=== PATIENT | male | born 1965 | race African-American/Black ===

== ENCOUNTER 2020-03-22 15:24 | Inpatient (IN) ==
[2020-03-22] MEDS ORDERED: ALUM/MAG/SIMETH/LIDO VISC 1:1 30 ML BOTTLE PO STA (15:53)
[2020-03-22 16:11] LABS: Basophils % 0.2 % (0.0-0.8); Eosinophils # 0.2 10*3/uL (0.0-0.87); Eosinophils % 1.1 % (0.00-10.9); Hematocrit 25.6 VOL% (42.0-52.0); Hemoglobin 8.3 GM/DL (14.0-18.0); Immature Granulocytes % 0.6 %; Immature Granulocytes Absolute 0.09 #; Lymphocytes # 0.8 10*3/uL (1.4-4.0); Lymphocytes % 5.2 % (21.2-54.2); Mean Corpuscular HGB Conc 32.4 GM/DL (32-36); Mean Corpuscular Volume 94.1 FL (87-102); Mean Platelet Volume 10.5 FL (9.6-12.0); Monocytes % 8.3 % (1.7-12.7); NRBC # 0.03 10*3/uL; Neutrophils % 84.6 % (38.7-73.9); Platelet Count 359 T/CUMM (130-400); Red Blood Count 2.72 MC/CUMM (3.8-5.5); White Blood Count 16.1 T/CUMM (4-12)
[2020-03-22 16:31] LABS: Albumin 3.2 G/DL (3.4-5.0); Bilirubin,Total 0.6 MG/DL (0.2-1.0); Osmolality,Calculated 310.4 MOS/KG (273-304); Total Protein 6.6 G/DL (6.4-8.3)
[2020-03-22] MEDS ORDERED: cefTRIAXone 1,000 MG in SODIUM CHLORIDE 0.9% 100 ML IV STA (17:18)
[2020-03-22] MEDS ORDERED: DEXTROSE 50% 25 GM/50 ML VIAL IV PRN (18:36)
[2020-03-22] MEDS ORDERED: ONDANSETRON 4 MG/2 ML VIAL IV PRN (18:36)
[2020-03-22] MEDS ORDERED: DOCUSATE SODIUM 100 MG CAPSULE PO PRN (18:36)
[2020-03-22] MEDS ORDERED: GLUCAGON 1 MG VIAL IM PRN (18:36)
[2020-03-22 18:48] LABS: Apearance,Urine CLEAR (Clear); Bilirubin,Urine Negative (Negative); Blood, Urine Negative (Negative); Glucose,Urine (UA) Negative (Negative); Ketones,Urine Negative (Negative); Mucus,Urine Occasional /LPF (Occasional); Nitrite,Urine Negative (Negative); Protein,Urine Negative; RBC,Urine 2 /HPF (0-4); Squamous Epithelial Cell,Urine Occasional /HPF (0-10); Urine Color Yellow (Yellow); Urine Specific Gravity 1.013 (1.001-1.035); WBC,Urine 12 /HPF (0-6)
[2020-03-22] MEDS: HEPARIN 5,000 UNIT/1 ML VIAL SUBCUT SCH (22:36)
[2020-03-22] MEDS: PIPERACILLIN/TAZOBACTAM 3,375 MG in SODIUM CHLORIDE 0.9% 100 ML IV SCH (22:51)
[2020-03-22] MEDS: SODIUM BICARB INJ 100 MEQ in STERILE WATER INJ 1,000 ML IV SCH (22:51)
[2020-03-22] MEDS: INSULIN REGULAR 100 UNIT/ML SUBCUT SCH (22:52)
[2020-03-22] MEDS: INSULIN NPH/REGULAR 70/30 100 UNIT/ML SUBCUT SCH (22:52)
[2020-03-23] MEDS: CLINDAMYCIN INJ 600 MG in PREMIX 1 EACH IV SCH ×3 (03:16→15:08)
[2020-03-23 03:40] LABS: ABG Base Excess -0.8 MMOL/L (-2.5-2.5); ABG HCO3 23.9 MMOL/L (20-26); ABG Oxygen Saturation 94.1 % (95-100); ABG PCO2 40.1 MM HG (35-48); ABG PH 7.394 (7.35-7.45); ABG PO2 75.2 MM HG (80-95); ABG TCO2 25.2 MMOL/L (23-27); Allen Test Positive; Pt O2 Delivery Device Room Air
[2020-03-23 05:18] LABS: Basophils % 0.2 % (0.0-0.8); Eosinophils # 0.1 10*3/uL (0.0-0.87); Eosinophils % 0.4 % (0.00-10.9); Hematocrit 25.4 VOL% (42.0-52.0); Immature Granulocytes % 0.9 %; Immature Granulocytes Absolute 0.19 #; Lymphocytes # 1.5 10*3/uL (1.4-4.0); Lymphocytes % 7.2 % (21.2-54.2); Mean Corpuscular HGB Conc 31.5 GM/DL (32-36); Mean Platelet Volume 10.6 FL (9.6-12.0); Monocytes % 10.1 % (1.7-12.7); Neutrophils % 81.2 % (38.7-73.9); Platelet Count 336 T/CUMM (130-400); Red Blood Count 2.73 MC/CUMM (3.8-5.5); Red Cell Distribution Width 13.1 % (9.3-17.3); White Blood Count 20.4 T/CUMM (4-12)
[2020-03-23 05:30] LABS: Osmolality,Calculated 309.4 MOS/KG (273-304)
[2020-03-23 05:33] LABS: % Iron Saturation 6.6 % (18-50)
[2020-03-23] MEDS: HEPARIN 5,000 UNIT/1 ML VIAL SUBCUT SCH ×3 (05:33→21:06)
[2020-03-23 05:40] LABS: Hypochromasia 2+; Microcytosis 1+; Platelet Estimate Adequate
[2020-03-23 06:01] LABS: Folate 11.9 NG/ML (5.4-24.0); Parathyroid Hormone Intact 153.1 PG/ML (18.4-80.1); Vitamin B12 1455 PG/ML (211-911)
[2020-03-23 08:28] LABS: Sedimentation Rate-Westergren 130 MM/HR (0-20)
[2020-03-23] MEDS: PIPERACILLIN/TAZOBACTAM 3,375 MG in SODIUM CHLORIDE 0.9% 100 ML IV SCH ×2 (08:31→21:06)
[2020-03-23] MEDS: INSULIN REGULAR 100 UNIT/ML SUBCUT SCH ×4 (08:38→21:17)
[2020-03-23] MEDS: INSULIN NPH/REGULAR 70/30 100 UNIT/ML SUBCUT SCH ×2 (08:38→21:17)
[2020-03-23 10:28] LABS: Hemoglobin A1 (Alkaline) 96.5 % (96.5-98.5); Hemoglobin A2 (Alkaline) 3.5 % (1.5-3.5)
[2020-03-23] MEDS: ACETAMINOPHEN 325 MG TABLET PO PRN (21:05)
[2020-03-23] MEDS: SODIUM BICARB INJ 100 MEQ in STERILE WATER INJ 1,000 ML IV SCH (21:06)
[2020-03-24] MEDS: CLINDAMYCIN INJ 600 MG in PREMIX 1 EACH IV SCH ×3 (01:27→15:15)
[2020-03-24] MEDS: SODIUM BICARB INJ 100 MEQ in STERILE WATER INJ 1,000 ML IV SCH ×2 (02:56→20:45)
[2020-03-24] MEDS: HEPARIN 5,000 UNIT/1 ML VIAL SUBCUT SCH ×3 (05:05→21:28)
[2020-03-24 06:02] LABS: Basophils # 0.1 10*3/uL (0.0-0.2); Basophils % 0.3 % (0.0-0.8); Eosinophils % 0.1 % (0.00-10.9); Hematocrit 24.8 VOL% (42.0-52.0); Immature Granulocytes % 1.2 %; Immature Granulocytes Absolute 0.25 #; Lymphocytes # 1.2 10*3/uL (1.4-4.0); Lymphocytes % 5.6 % (21.2-54.2); Mean Corpuscular HGB Conc 32.3 GM/DL (32-36); Mean Corpuscular Volume 92.9 FL (87-102); Mean Platelet Volume 11.1 FL (9.6-12.0); Monocytes % 7.6 % (1.7-12.7); Neutrophils % 85.2 % (38.7-73.9); Platelet Count 321 T/CUMM (130-400); Red Blood Count 2.67 MC/CUMM (3.8-5.5); Red Cell Distribution Width 12.8 % (9.3-17.3); White Blood Count 21.7 T/CUMM (4-12)
[2020-03-24 06:22] LABS: Calcium 9.6 MG/DL (8.5-10.1); Osmolality,Calculated 303.4 MOS/KG (273-304)
[2020-03-24 06:25] LABS: Band Neutrophils 1 % (0-10); Hypochromasia 2+; Lymphocytes 5 % (20-55); Microcytosis 1+; Ovalocytes Slight; Platelet Estimate Adequate; Segmented Neutrophils 89 % (50-85); Total Cells Counted 100
[2020-03-24] MEDS ORDERED: ERGOCALCIFEROL 50,000 UNIT CAPSULE PO SCH (07:00)
[2020-03-24] MEDS: PIPERACILLIN/TAZOBACTAM 3,375 MG in SODIUM CHLORIDE 0.9% 100 ML IV SCH ×2 (08:15→21:28)
[2020-03-24] MEDS: INSULIN REGULAR 100 UNIT/ML SUBCUT SCH ×4 (08:29→21:50)
[2020-03-24] MEDS: cloNIDine 0.1 MG TABLET PO SCH ×2 (08:30→21:27)
[2020-03-24] MEDS: INSULIN NPH/REGULAR 70/30 100 UNIT/ML SUBCUT SCH ×2 (08:30→21:27)
[2020-03-24] MEDS: hydroCHLOROthiazide 25 MG TABLET PO SCH (08:31)
[2020-03-24] MEDS: GABAPENTIN 400 MG CAPSULE PO SCH ×3 (08:31→21:27)
[2020-03-24] MEDS: POLYETHYLENE GLYCOL POWDER 17 GM PACK PO SCH (10:37)
[2020-03-24] MEDS: IRON SUCROSE 200 MG in SODIUM CHLORIDE 0.9% 100 ML IV SCH (12:26)
[2020-03-24] MEDS: SIMVASTATIN 20 MG TABLET PO SCH (16:29)
[2020-03-24] MEDS: INSULIN GLARGINE 100 UNIT/ML SUBCUT SCH (21:50)
[2020-03-25] MEDS: CLINDAMYCIN INJ 600 MG in PREMIX 1 EACH IV SCH ×3 (00:06→15:22)
[2020-03-25] MEDS: ACETAMINOPHEN 325 MG TABLET PO PRN ×2 (03:56→08:54)
[2020-03-25] MEDS: HEPARIN 5,000 UNIT/1 ML VIAL SUBCUT SCH ×3 (03:56→21:08)
[2020-03-25 05:29] LABS: Basophils # 0.1 10*3/uL (0.0-0.2); Basophils % 0.3 % (0.0-0.8); Eosinophils # 0.2 10*3/uL (0.0-0.87); Eosinophils % 0.8 % (0.00-10.9); Hematocrit 22.4 VOL% (42.0-52.0); Hemoglobin 7.2 GM/DL (14.0-18.0); Lymphocytes # 1.6 10*3/uL (1.4-4.0); Lymphocytes % 8.1 % (21.2-54.2); Mean Corpuscular HGB Conc 32.1 GM/DL (32-36); Mean Corpuscular Volume 93.7 FL (87-102); Mean Platelet Volume 10.6 FL (9.6-12.0); Neutrophils % 81.8 % (38.7-73.9); Platelet Count 343 T/CUMM (130-400); Red Blood Count 2.39 MC/CUMM (3.8-5.5); Red Cell Distribution Width 12.9 % (9.3-17.3); White Blood Count 19.7 T/CUMM (4-12)
[2020-03-25 05:49] LABS: Calcium 9.1 MG/DL (8.5-10.1); Osmolality,Calculated 302.4 MOS/KG (273-304)
[2020-03-25 06:42] LABS: HIV Antigen/Antibody Result Nonreactive (Nonreactive)
[2020-03-25] MEDS: INSULIN REGULAR 100 UNIT/ML SUBCUT SCH ×4 (08:47→21:07)
[2020-03-25] MEDS: cloNIDine 0.1 MG TABLET PO SCH ×2 (08:49→21:08)
[2020-03-25] MEDS: INSULIN NPH/REGULAR 70/30 100 UNIT/ML SUBCUT SCH ×2 (08:49→21:24)
[2020-03-25] MEDS: hydroCHLOROthiazide 25 MG TABLET PO SCH (08:49)
[2020-03-25] MEDS: GABAPENTIN 400 MG CAPSULE PO SCH ×3 (08:49→21:06)
[2020-03-25] MEDS: POLYETHYLENE GLYCOL POWDER 17 GM PACK PO SCH (08:49)
[2020-03-25] MEDS: IRON SUCROSE 200 MG in SODIUM CHLORIDE 0.9% 100 ML IV SCH (09:20)
[2020-03-25] MEDS: PIPERACILLIN/TAZOBACTAM 3,375 MG in SODIUM CHLORIDE 0.9% 100 ML IV SCH ×2 (09:58→21:04)
[2020-03-25] MEDS: SODIUM BICARB INJ 100 MEQ in STERILE WATER INJ 1,000 ML IV SCH ×2 (14:31→23:22)
[2020-03-25] MEDS: SIMVASTATIN 20 MG TABLET PO SCH (16:34)
[2020-03-25] MEDS: INSULIN GLARGINE 100 UNIT/ML SUBCUT SCH (21:07)
[2020-03-26] MEDS: CLINDAMYCIN INJ 600 MG in PREMIX 1 EACH IV SCH ×3 (01:05→21:20)
[2020-03-26] MEDS: HEPARIN 5,000 UNIT/1 ML VIAL SUBCUT SCH ×3 (04:50→21:21)
[2020-03-26 06:00] LABS: Basophils # 0.1 10*3/uL (0.0-0.2); Basophils % 0.3 % (0.0-0.8); Eosinophils # 0.4 10*3/uL (0.0-0.87); Eosinophils % 2.1 % (0.00-10.9); Hematocrit 22.1 VOL% (42.0-52.0); Immature Granulocytes % 2.9 %; Lymphocytes # 1.6 10*3/uL (1.4-4.0); Lymphocytes % 9.2 % (21.2-54.2); Mean Corpuscular HGB Conc 31.7 GM/DL (32-36); Mean Corpuscular Volume 92.9 FL (87-102); Mean Platelet Volume 10.3 FL (9.6-12.0); Monocytes % 8.4 % (1.7-12.7); NRBC # 0.02 10*3/uL; Neutrophils % 77.1 % (38.7-73.9); Platelet Count 354 T/CUMM (130-400); Red Blood Count 2.38 MC/CUMM (3.8-5.5)
[2020-03-26 06:31] LABS: Osmolality,Calculated 298.5 MOS/KG (273-304)
[2020-03-26] MEDS: INSULIN NPH/REGULAR 70/30 100 UNIT/ML SUBCUT SCH ×2 (09:08→21:22)
[2020-03-26] MEDS: INSULIN REGULAR 100 UNIT/ML SUBCUT SCH ×4 (09:08→21:21)
[2020-03-26] MEDS: hydroCHLOROthiazide 25 MG TABLET PO SCH (09:09)
[2020-03-26] MEDS: cloNIDine 0.1 MG TABLET PO SCH ×2 (09:09→21:20)
[2020-03-26] MEDS: GABAPENTIN 400 MG CAPSULE PO SCH ×3 (09:09→21:20)
[2020-03-26] MEDS: POLYETHYLENE GLYCOL POWDER 17 GM PACK PO SCH (09:10)
[2020-03-26 10:58] LABS: Procalcitonin, S 4.9 ng/mL (<=0.15)
[2020-03-26] MEDS: IRON SUCROSE 200 MG in SODIUM CHLORIDE 0.9% 100 ML IV SCH (13:53)
[2020-03-26] MEDS: PIPERACILLIN/TAZOBACTAM 3,375 MG in SODIUM CHLORIDE 0.9% 100 ML IV SCH (15:01)
[2020-03-26] MEDS: SODIUM BICARB INJ 100 MEQ in STERILE WATER INJ 1,000 ML IV SCH ×2 (15:01→21:20)
[2020-03-26] MEDS: SIMVASTATIN 20 MG TABLET PO SCH (17:30)
[2020-03-26] MEDS: INSULIN GLARGINE 100 UNIT/ML SUBCUT SCH (21:23)
[2020-03-27] MEDS: HEPARIN 5,000 UNIT/1 ML VIAL SUBCUT SCH ×3 (03:46→21:23)
[2020-03-27] MEDS: PIPERACILLIN/TAZOBACTAM 3,375 MG in SODIUM CHLORIDE 0.9% 100 ML IV SCH ×2 (03:46→17:43)
[2020-03-27] MEDS: CLINDAMYCIN INJ 600 MG in PREMIX 1 EACH IV SCH ×3 (05:43→23:46)
[2020-03-27 06:45] LABS: Basophils # 0.1 10*3/uL (0.0-0.2); Basophils % 0.3 % (0.0-0.8); Eosinophils # 0.3 10*3/uL (0.0-0.87); Eosinophils % 1.3 % (0.00-10.9); Hematocrit 20.7 VOL% (42.0-52.0); Hemoglobin 6.5 GM/DL (14.0-18.0); Immature Granulocytes % 4.6 %; Immature Granulocytes Absolute 0.86 #; Lymphocytes # 2.2 10*3/uL (1.4-4.0); Lymphocytes % 11.5 % (21.2-54.2); Mean Corpuscular HGB Conc 31.4 GM/DL (32-36); Mean Corpuscular Volume 95.4 FL (87-102); Mean Platelet Volume 10.4 FL (9.6-12.0); Monocytes % 8.8 % (1.7-12.7); NRBC # 0.04 10*3/uL; Neutrophils % 73.5 % (38.7-73.9); Platelet Count 377 T/CUMM (130-400); Red Blood Count 2.17 MC/CUMM (3.8-5.5); Red Cell Distribution Width 12.9 % (9.3-17.3); White Blood Count 18.6 T/CUMM (4-12)
[2020-03-27] MEDS: INSULIN REGULAR 100 UNIT/ML SUBCUT SCH ×4 (07:42→21:22)
[2020-03-27 07:44] LABS: Eosinophils 1 % (0-10); Hypochromasia 2+; Lymphocytes 10 % (20-55); Metamyelocytes 1 %; Myelocytes 2 %; Segmented Neutrophils 78 % (50-85); Total Cells Counted 100
[2020-03-27 07:45] LABS: Platelet Estimate Normal; Polychromasia Slight
[2020-03-27] MEDS ORDERED: SODIUM CHLORIDE 0.9% 1,000 ML IV PRN (07:45)
[2020-03-27] MEDS: INSULIN NPH/REGULAR 70/30 100 UNIT/ML SUBCUT SCH ×2 (08:06→21:31)
[2020-03-27] MEDS: GABAPENTIN 400 MG CAPSULE PO SCH ×3 (08:06→21:31)
[2020-03-27] MEDS: cloNIDine 0.1 MG TABLET PO SCH ×2 (08:06→21:23)
[2020-03-27] MEDS: hydroCHLOROthiazide 25 MG TABLET PO SCH (08:06)
[2020-03-27] MEDS: POLYETHYLENE GLYCOL POWDER 17 GM PACK PO SCH (08:07)
[2020-03-27] MEDS: SODIUM BICARB INJ 100 MEQ in STERILE WATER INJ 1,000 ML IV SCH (08:31)
[2020-03-27 08:38] LABS: Calcium 8.8 MG/DL (8.5-10.1); Osmolality,Calculated 298.8 MOS/KG (273-304)
[2020-03-27] MEDS ORDERED: predniSONE 20 MG TABLET PO ONE (14:07)
[2020-03-27] MEDS: IRON SUCROSE 200 MG in SODIUM CHLORIDE 0.9% 100 ML IV SCH (14:27)
[2020-03-27 15:51] LABS: Hematocrit 25.4 VOL% (42.0-52.0); Hemoglobin 8.3 GM/DL (14.0-18.0)
[2020-03-27] MEDS: SIMVASTATIN 20 MG TABLET PO SCH (17:42)
[2020-03-27] MEDS: INSULIN GLARGINE 100 UNIT/ML SUBCUT SCH (21:14)
[2020-03-28] MEDS: PIPERACILLIN/TAZOBACTAM 3,375 MG in SODIUM CHLORIDE 0.9% 100 ML IV SCH ×2 (05:34→17:07)
[2020-03-28] MEDS: HEPARIN 5,000 UNIT/1 ML VIAL SUBCUT SCH ×3 (05:34→20:45)
[2020-03-28] MEDS: SODIUM BICARB INJ 100 MEQ in STERILE WATER INJ 1,000 ML IV SCH ×5 (05:36→23:58)
[2020-03-28 06:23] LABS: Basophils # 0.1 10*3/uL (0.0-0.2); Basophils % 0.3 % (0.0-0.8); Eosinophils % 0.1 % (0.00-10.9); Hemoglobin 8.2 GM/DL (14.0-18.0); Immature Granulocytes % 3.8 %; Immature Granulocytes Absolute 0.85 #; Lymphocytes # 1.4 10*3/uL (1.4-4.0); Lymphocytes % 6.2 % (21.2-54.2); Mean Corpuscular HGB Conc 32.8 GM/DL (32-36); Mean Corpuscular Volume 93.6 FL (87-102); Mean Platelet Volume 9.9 FL (9.6-12.0); Monocytes % 6.2 % (1.7-12.7); Neutrophils % 83.4 % (38.7-73.9); Platelet Count 356 T/CUMM (130-400); Red Blood Count 2.67 MC/CUMM (3.8-5.5); Red Cell Distribution Width 12.9 % (9.3-17.3); White Blood Count 22.3 T/CUMM (4-12)
[2020-03-28 06:44] LABS: Calcium 9.2 MG/DL (8.5-10.1)
[2020-03-28] MEDS: IRON SUCROSE 200 MG in SODIUM CHLORIDE 0.9% 100 ML IV SCH (08:36)
[2020-03-28 08:37] LABS: Anisocytosis 1+; Band Neutrophils 2 % (0-10); Lymphocytes 8 % (20-55); Metamyelocytes 1 %; Myelocytes 2 %; Platelet Estimate Normal; Segmented Neutrophils 82 % (50-85); Total Cells Counted 100
[2020-03-28] MEDS: CLINDAMYCIN INJ 600 MG in PREMIX 1 EACH IV SCH ×2 (08:37→16:24)
[2020-03-28 08:38] LABS: Macrocytosis Slight
[2020-03-28] MEDS: hydroCHLOROthiazide 25 MG TABLET PO SCH (08:38)
[2020-03-28] MEDS: GABAPENTIN 400 MG CAPSULE PO SCH ×3 (08:39→20:44)
[2020-03-28] MEDS: INSULIN REGULAR 100 UNIT/ML SUBCUT SCH ×4 (08:40→20:47)
[2020-03-28] MEDS: INSULIN NPH/REGULAR 70/30 100 UNIT/ML SUBCUT SCH ×2 (08:40→20:46)
[2020-03-28] MEDS: POLYETHYLENE GLYCOL POWDER 17 GM PACK PO SCH (08:41)
[2020-03-28] MEDS: cloNIDine 0.1 MG TABLET PO SCH ×2 (08:43→20:44)
[2020-03-28] MEDS: predniSONE 20 MG TABLET PO SCH ×2 (08:51→20:44)
[2020-03-28] MEDS: SIMVASTATIN 20 MG TABLET PO SCH (16:26)
[2020-03-28] MEDS: INSULIN GLARGINE 100 UNIT/ML SUBCUT SCH (20:47)
[2020-03-29] MEDS: CLINDAMYCIN INJ 600 MG in PREMIX 1 EACH IV SCH ×3 (00:09→16:13)
[2020-03-29] MEDS: HEPARIN 5,000 UNIT/1 ML VIAL SUBCUT SCH ×3 (04:28→21:56)
[2020-03-29] MEDS: PIPERACILLIN/TAZOBACTAM 3,375 MG in SODIUM CHLORIDE 0.9% 100 ML IV SCH ×2 (05:15→17:23)
[2020-03-29 05:38] LABS: Basophils # 0.1 10*3/uL (0.0-0.2); Basophils % 0.2 % (0.0-0.8); Hematocrit 24.2 VOL% (42.0-52.0); Hemoglobin 7.9 GM/DL (14.0-18.0); Immature Granulocytes % 2.9 %; Immature Granulocytes Absolute 0.82 #; Lymphocytes % 3.6 % (21.2-54.2); Mean Corpuscular HGB Conc 32.6 GM/DL (32-36); Mean Corpuscular Volume 92.7 FL (87-102); Mean Platelet Volume 10.9 FL (9.6-12.0); Neutrophils % 89.3 % (38.7-73.9); Platelet Count 377 T/CUMM (130-400); Red Blood Count 2.61 MC/CUMM (3.8-5.5); White Blood Count 28.5 T/CUMM (4-12)
[2020-03-29 05:51] LABS: Calcium 8.4 MG/DL (8.5-10.1); Osmolality,Calculated 303.1 MOS/KG (273-304)
[2020-03-29 06:54] LABS: Band Neutrophils 1 % (0-10); Lymphocytes 2 % (20-55); Segmented Neutrophils 96 % (50-85)
[2020-03-29 06:55] LABS: Platelet Estimate Normal; Total Cells Counted 100
[2020-03-29] MEDS: INSULIN REGULAR 100 UNIT/ML SUBCUT SCH ×4 (08:17→22:02)
[2020-03-29] MEDS: GABAPENTIN 400 MG CAPSULE PO SCH ×3 (08:18→21:55)
[2020-03-29] MEDS: INSULIN NPH/REGULAR 70/30 100 UNIT/ML SUBCUT SCH ×2 (08:18→21:56)
[2020-03-29] MEDS: cloNIDine 0.1 MG TABLET PO SCH ×2 (08:18→21:55)
[2020-03-29] MEDS: hydroCHLOROthiazide 25 MG TABLET PO SCH (08:19)
[2020-03-29] MEDS: POLYETHYLENE GLYCOL POWDER 17 GM PACK PO SCH (08:19)
[2020-03-29] MEDS: predniSONE 20 MG TABLET PO SCH (08:19)
[2020-03-29] MEDS: SODIUM BICARB INJ 100 MEQ in STERILE WATER INJ 1,000 ML IV SCH ×2 (08:29→14:02)
[2020-03-29] MEDS ORDERED: INSULIN GLARGINE 100 UNIT/ML SUBCUT SCH (09:04)
[2020-03-29] MEDS: IRON SUCROSE 200 MG in SODIUM CHLORIDE 0.9% 100 ML IV SCH (09:06)
[2020-03-29] MEDS: SIMVASTATIN 20 MG TABLET PO SCH (16:12)
[2020-03-29] MEDS: COLCHICINE 0.6 MG CAPSULE PO SCH (18:00)
[2020-03-29] MEDS ORDERED: ERGOCALCIFEROL 50,000 UNIT CAPSULE PO SCH (20:00)
[2020-03-29] MEDS ORDERED: allopurinoL 100 MG TABLET PO SCH (21:00)
[2020-03-30] MEDS: CLINDAMYCIN INJ 600 MG in PREMIX 1 EACH IV SCH ×2 (01:10→09:20)
[2020-03-30 04:26] LABS: Basophils # 0.1 10*3/uL (0.0-0.2); Basophils % 0.2 % (0.0-0.8); Eosinophils # 0.1 10*3/uL (0.0-0.87); Eosinophils % 0.3 % (0.00-10.9); Hematocrit 25.2 VOL% (42.0-52.0); Hemoglobin 8.1 GM/DL (14.0-18.0); Immature Granulocytes % 1.9 %; Immature Granulocytes Absolute 0.43 #; Lymphocytes # 2.1 10*3/uL (1.4-4.0); Lymphocytes % 9.1 % (21.2-54.2); Mean Corpuscular HGB Conc 32.1 GM/DL (32-36); Mean Platelet Volume 10.1 FL (9.6-12.0); Monocytes % 5.4 % (1.7-12.7); Neutrophils % 83.1 % (38.7-73.9); Platelet Count 446 T/CUMM (130-400); Red Blood Count 2.68 MC/CUMM (3.8-5.5); Red Cell Distribution Width 12.8 % (9.3-17.3); White Blood Count 22.7 T/CUMM (4-12)
[2020-03-30 04:46] LABS: Hypochromasia 1+; Lymphocytes 5 % (20-55); Microcytosis Slight; Ovalocytes Slight; Platelet Estimate Adequate; Segmented Neutrophils 90 % (50-85); Total Cells Counted 100
[2020-03-30 04:52] LABS: Osmolality,Calculated 303.8 MOS/KG (273-304)
[2020-03-30] MEDS: HEPARIN 5,000 UNIT/1 ML VIAL SUBCUT SCH (05:28)
[2020-03-30] MEDS: PIPERACILLIN/TAZOBACTAM 3,375 MG in SODIUM CHLORIDE 0.9% 100 ML IV SCH (05:29)
[2020-03-30] MEDS: SODIUM BICARB INJ 100 MEQ in STERILE WATER INJ 1,000 ML IV SCH (05:31)
[2020-03-30] MEDS: INSULIN REGULAR 100 UNIT/ML SUBCUT SCH (08:36)
[2020-03-30] MEDS: INSULIN NPH/REGULAR 70/30 100 UNIT/ML SUBCUT SCH (08:38)
[2020-03-30] MEDS: cloNIDine 0.1 MG TABLET PO SCH (08:41)
[2020-03-30] MEDS: COLCHICINE 0.6 MG CAPSULE PO SCH (08:42)
[2020-03-30] MEDS: GABAPENTIN 400 MG CAPSULE PO SCH (08:42)
[2020-03-30] MEDS: POLYETHYLENE GLYCOL POWDER 17 GM PACK PO SCH (08:46)
[2020-03-30] MEDS ORDERED: predniSONE 20 MG TABLET PO SCH (09:00)
[2020-03-30] MEDS ORDERED: ASPIRIN EC 81 MG TABLET PO SCH (10:30)
[2020-03-30] MEDS ORDERED: amLODIPine 5 MG TABLET PO SCH (10:30)
[2020-03-30 11:15] VITALS: BP 144/77
[2020-03-30] MEDS: IRON SUCROSE 200 MG in SODIUM CHLORIDE 0.9% 100 ML IV SCH (11:15)
== END 2020-03-30 11:40 | disposition home or self-care (01) | DRG 469 ==
LOC: N.ED 15:24 → N.EDINP 17:23 → SUATTDRO 17:23 → N.TELEN 19:36 → N.4E 03-25 18:16
PROVIDERS: ADMIT Family Medicine; ATTEND Hospitalist

== ENCOUNTER 2020-05-24 02:20 | Inpatient (IN) ==
[2020-05-24] MEDS ORDERED: methylPREDNISolone SOD SUC 125 MG/2 ML VIAL IV STA (02:38)
[2020-05-24] MEDS ORDERED: ALBUTEROL/IPRATROPIUM 3 ML NEB RESP TX STA (02:38)
[2020-05-24] MEDS ORDERED: FUROSEMIDE 40 MG/4 ML VIAL IV STA (02:39)
[2020-05-24] MEDS ORDERED: NITROGLYCERIN 2% OINT 1 INCH/GM PACK TOP STA (02:39)
[2020-05-24 02:56] LABS: Basophils % 0.2 % (0.0-0.8); Eosinophils # 0.2 10*3/uL (0.0-0.87); Eosinophils % 0.8 % (0.00-10.9); Hematocrit 33.3 VOL% (42.0-52.0); Hemoglobin 10.7 GM/DL (14.0-18.0); Immature Granulocytes % 0.5 %; Lymphocytes # 2.8 10*3/uL (1.4-4.0); Lymphocytes % 13.7 % (21.2-54.2); Mean Corpuscular HGB Conc 32.1 GM/DL (32-36); Mean Corpuscular Volume 96.5 FL (87-102); Mean Platelet Volume 10.1 FL (9.6-12.0); Monocytes % 2.4 % (1.7-12.7); Neutrophils % 82.4 % (38.7-73.9); Platelet Count 275 T/CUMM (130-400); Red Blood Count 3.45 MC/CUMM (3.8-5.5); Red Cell Distribution Width 14.6 % (9.3-17.3); White Blood Count 20.6 T/CUMM (4-12)
[2020-05-24 03:25] LABS: Alanine Aminotransferase 23 U/L (16-61); Albumin 3.4 G/DL (3.4-5.0); Alkaline Phosphatase 99 U/L (45-117); Aspartate Amino Transferase 13 U/L (0-37); Blood Urea Nitrogen 49 MG/DL (7-18); Calcium 9.1 MG/DL (8.5-10.1); Estimated Glom Filtration Rate 55 ML/MIN; Glucose 91 MG/DL (74-106); Osmolality,Calculated 295.1 MOS/KG (273-304); Total Protein 7.7 G/DL (6.4-8.3)
[2020-05-24 03:54] LABS: Band Neutrophils 1 % (0-10); Eosinophils 1 % (0-10); Lymphocytes 16 % (20-55); Platelet Estimate Normal; Polychromasia Slight; Segmented Neutrophils 81 % (50-85); Total Cells Counted 100
[2020-05-24 03:56] LABS: Stomatocytes Slight
[2020-05-24] MEDS ORDERED: LEVOFLOXACIN INJ 500 MG in PREMIX 1 EACH IV STA (03:56)
[2020-05-24] MEDS ORDERED: ONDANSETRON 4 MG/2 ML VIAL IV PRN (05:27)
[2020-05-24] MEDS ORDERED: ACETAMINOPHEN 325 MG TABLET PO PRN (05:27)
[2020-05-24] MEDS ORDERED: ALBUTEROL/IPRATROPIUM 3 ML NEB RESP TX PRN (05:27)
[2020-05-24] MEDS ORDERED: GLUCAGON 1 MG VIAL IM PRN (05:27)
[2020-05-24] MEDS ORDERED: DEXTROSE 50% 25 GM/50 ML VIAL IV PRN (05:27)
[2020-05-24] MEDS ORDERED: DOCUSATE SODIUM 100 MG CAPSULE PO PRN (05:27)
[2020-05-24 05:57] LABS: Ferritin 1399.7 ng/ml (26-388)
[2020-05-24] MEDS: ASPIRIN EC 81 MG TABLET PO SCH (08:58)
[2020-05-24] MEDS: COLCHICINE 0.6 MG CAPSULE PO SCH (08:58)
[2020-05-24] MEDS: cefTRIAXone 2,000 MG in SYRINGE 1 EACH IV SCH (08:58)
[2020-05-24] MEDS: GABAPENTIN 400 MG CAPSULE PO SCH ×3 (08:58→21:51)
[2020-05-24] MEDS: POLYETHYLENE GLYCOL POWDER 17 GM PACK PO SCH (08:58)
[2020-05-24] MEDS: amLODIPine 5 MG TABLET PO SCH (08:58)
[2020-05-24] MEDS: cloNIDine 0.1 MG TABLET PO SCH ×2 (08:58→21:51)
[2020-05-24] MEDS: ISOSORBIDE MONONITRATE 30 MG TABLET PO SCH (08:58)
[2020-05-24] MEDS: INSULIN LISPRO 100 UNIT/ML SUBCUT SCH ×4 (08:59→21:51)
[2020-05-24] MEDS: ENOXAPARIN 40 MG/0.4 ML SYRINGE SUBCUT SCH (08:59)
[2020-05-24] MEDS: INSULIN NPH/REGULAR 70/30 100 UNIT/ML SUBCUT SCH ×2 (09:00→16:47)
[2020-05-24] MEDS: FUROSEMIDE 40 MG/4 ML VIAL IV SCH ×2 (09:00→16:47)
[2020-05-24] MEDS: SIMVASTATIN 20 MG TABLET PO SCH (16:47)
[2020-05-24] MEDS ORDERED: allopurinoL 100 MG TABLET PO SCH (21:00)
[2020-05-25] MEDS: ENOXAPARIN 40 MG/0.4 ML SYRINGE SUBCUT SCH (05:58)
[2020-05-25] MEDS: cefTRIAXone 2,000 MG in SYRINGE 1 EACH IV SCH (05:59)
[2020-05-25 06:01] LABS: Basophils % 0.1 % (0.0-0.8); Hematocrit 26.2 VOL% (42.0-52.0); Hemoglobin 8.6 GM/DL (14.0-18.0); Immature Granulocytes Absolute 0.28 #; Lymphocytes # 0.9 10*3/uL (1.4-4.0); Lymphocytes % 3.5 % (21.2-54.2); Mean Corpuscular HGB Conc 32.8 GM/DL (32-36); Mean Corpuscular Volume 95.6 FL (87-102); Mean Platelet Volume 10.9 FL (9.6-12.0); Monocytes % 4.5 % (1.7-12.7); Neutrophils % 90.9 % (38.7-73.9); Platelet Count 217 T/CUMM (130-400); Red Blood Count 2.74 MC/CUMM (3.8-5.5); Red Cell Distribution Width 14.1 % (9.3-17.3)
[2020-05-25 06:19] LABS: Calcium 9.1 MG/DL (8.5-10.1); Osmolality,Calculated 297.7 MOS/KG (273-304)
[2020-05-25 06:21] LABS: Calcium 9.1 MG/DL (8.5-10.1); Osmolality,Calculated 297.5 MOS/KG (273-304)
[2020-05-25 06:27] LABS: Albumin 2.9 G/DL (3.4-5.0); Bilirubin,Total 0.4 MG/DL (0.2-1.0); Calcium 9.1 MG/DL (8.5-10.1); Osmolality,Calculated 295.7 MOS/KG (273-304); Risk Ratio 2.13; Total Protein 6.7 G/DL (6.4-8.3); VLDL CHOLESTEROL 10.2 MG/DL
[2020-05-25 06:51] LABS: Hypochromasia Slight; Lymphocytes 3 % (20-55); Platelet Estimate Normal; Segmented Neutrophils 93 % (50-85); Total Cells Counted 100
[2020-05-25] MEDS ORDERED: LINEZOLID INJ 600 MG in PREMIX 1 EACH IV SCH (07:30)
[2020-05-25] MEDS: INSULIN LISPRO 100 UNIT/ML SUBCUT SCH ×3 (08:59→16:28)
[2020-05-25] MEDS ORDERED: AZITHROMYCIN INJ 500 MG in SODIUM CHLORIDE 0.9% 250 ML IV SCH (09:00)
[2020-05-25] MEDS: INSULIN NPH/REGULAR 70/30 100 UNIT/ML SUBCUT SCH ×2 (09:00→16:28)
[2020-05-25] MEDS: amLODIPine 5 MG TABLET PO SCH (09:01)
[2020-05-25] MEDS: FUROSEMIDE 40 MG/4 ML VIAL IV SCH ×2 (09:01→15:57)
[2020-05-25] MEDS: COLCHICINE 0.6 MG CAPSULE PO SCH (09:01)
[2020-05-25] MEDS: GABAPENTIN 400 MG CAPSULE PO SCH ×2 (09:01→15:55)
[2020-05-25] MEDS: ASPIRIN EC 81 MG TABLET PO SCH (09:01)
[2020-05-25] MEDS: ISOSORBIDE MONONITRATE 30 MG TABLET PO SCH (09:01)
[2020-05-25] MEDS: cloNIDine 0.1 MG TABLET PO SCH (09:01)
[2020-05-25] MEDS: POLYETHYLENE GLYCOL POWDER 17 GM PACK PO SCH (09:02)
[2020-05-25] MEDS ORDERED: CEFEPIME 2,000 MG in SODIUM CHLORIDE 0.9% 100 ML IV SCH (10:00)
[2020-05-25 11:44] VITALS: BP 148/82
[2020-05-25] MEDS ORDERED: SODIUM POLYSTYRENE SULFATE 15 GM/60 ML BOTTLE PO STA (15:42)
[2020-05-25] MEDS: SIMVASTATIN 20 MG TABLET PO SCH (16:28)
[2020-05-26] MEDS ORDERED: MULTIVITAMIN (BEROCCA) TABLET PO SCH (09:00)
[2020-05-26] MEDS ORDERED: THIAMINE 100 MG TABLET PO SCH (09:00)
[2020-05-26 23:51] LABS: Specimen Source NASAL
[2020-06-02] MEDS ORDERED: ERGOCALCIFEROL 50,000 UNIT CAPSULE PO SCH (09:00)
== END 2020-05-25 16:40 | disposition home or self-care (01) | DRG 133 ==
LOC: N.ED 02:20 → N.EDINP 04:23 → N.TELES 06:01
PROVIDERS: ADMIT Internal Medicine; ATTEND Internal Medicine

== ENCOUNTER 2022-08-24 08:15 | Inpatient (IN) ==
[2022-08-24 08:54] LABS: Basophils % 0.2 % (0.0-0.8); Eosinophils # 0.1 10*3/uL (0.0-0.87); Eosinophils % 0.6 % (0.00-10.9); Hematocrit 24.1 VOL% (42.0-52.0); Hemoglobin 7.6 GM/DL (14.0-18.0); Immature Granulocytes % 1.2 %; Immature Granulocytes Absolute 0.12 #; Lymphocytes # 0.7 10*3/uL (1.4-4.0); Lymphocytes % 6.3 % (21.2-54.2); Mean Corpuscular HGB Conc 31.5 GM/DL (32-36); Mean Platelet Volume 9.9 FL (9.6-12.0); Monocytes # 0.5 10*3/uL (0.11-0.8); Monocytes % 5.1 % (1.7-12.7); Neutrophils % 86.6 % (38.7-73.9); Platelet Count 260 T/CUMM (130-400); Red Blood Count 2.46 MC/CUMM (3.8-5.5); Red Cell Distribution Width 13.6 % (9.3-17.3); White Blood Count 10.34 T/CUMM (4-12)
[2022-08-24 09:16] LABS: Mucus,Urine Occasional /LPF (Occasional); RBC,Urine 1 /HPF (0-4)
[2022-08-24 09:17] LABS: Bilirubin,Urine Negative (Negative); Blood, Urine Negative (Negative); Glucose,Urine (UA) Negative (Negative); Ketones,Urine Negative (Negative); Nitrite,Urine Negative (Negative); Protein,Urine 100 mg/dL (Negative); Urine Appearance Clear (Clear); Urine Color Yellow (Yellow); Urine Specific Gravity 1.015 (1.001-1.035); Urine Urobilinogen 0.2 eU/dL (<2.0)
[2022-08-24 09:26] LABS: Alanine Aminotransferase 15 U/L (16-61); Albumin 3.1 G/DL (3.4-5.0); Alkaline Phosphatase 80 U/L (45-117); Aspartate Amino Transferase 15 U/L (0-37); Bilirubin,Total < 0.39 MG/DL (0.20-1.00); Blood Urea Nitrogen 92 MG/DL (7-18); Calcium 8.6 MG/DL (8.5-10.1); Carbon Dioxide 16 MMOL/L (21-32); Chloride 117 MMOL/L (98-107); Glucose 93 MG/DL (74-106); Osmolality,Calculated 306.4 MOS/KG (273-304); Sodium 140 MMOL/L (136-145); Total Protein 7.5 G/DL (6.4-8.2)
[2022-08-24 09:37] LABS: Potassium 6.5 MMOL/L (3.5-5.1)
[2022-08-24] MEDS ORDERED: DEXTROSE 50% 25 GM/50 ML VIAL IV STA (09:52)
[2022-08-24] MEDS ORDERED: CALCIUM GLUCONATE RIDER 2,000 MG/100 ML PREMIX IV ONE (09:52)
[2022-08-24] MEDS ORDERED: SODIUM BICARBONATE 50 MEQ/50 ML VIAL IV STA (09:52)
[2022-08-24] MEDS ORDERED: SODIUM CHLORIDE 0.9% 500 ML IV STA (09:53)
[2022-08-24] MEDS ORDERED: DEXTROSE 50% 25 GM/50 ML SYRINGE IV ONE ×2 (09:58→09:59)
[2022-08-24] MEDS ORDERED: DEXTROSE 5% NACL 0.9% 1,000 ML IV SCH (10:30)
[2022-08-24] MEDS ORDERED: ONDANSETRON 4 MG/2 ML VIAL IV PRN (10:39)
[2022-08-24] MEDS ORDERED: ACETAMINOPHEN 325 MG TABLET PO PRN (10:39)
[2022-08-24] MEDS ORDERED: SODIUM ZIRCONIUM CYCLOSILICATE 10 GM PACK PO SCH (10:45)
[2022-08-24] MEDS ORDERED: SODIUM CHLORIDE 0.45% 1,000 ML IV SCH (11:00)
[2022-08-24] MEDS ORDERED: hydrALAZINE 20 MG/1 ML VIAL IV PRN (11:14)
[2022-08-24] MEDS ORDERED: DEXTROSE 10% 250 ML BAG IV PRN (11:29)
[2022-08-24] MEDS ORDERED: GLUCAGON 1 MG VIAL IM PRN (11:29)
[2022-08-24] MEDS: INSULIN LISPRO 100 UNIT/ML SUBCUT SCH ×3 (11:30→21:29)
[2022-08-24 11:42] LABS: Hepatitis B Core IgM Quant 0.19 Index; Hepatitis B Surface Ag Quant < 0.10 Index; Hepatitis B Surface Ag Result Non-Reactive (NonReactive); Hepatitis C Virus Ab Quant 0.06 Index; Hepatitis C Virus Ab Result Non-Reactive (NonReactive)
[2022-08-24 13:02] LABS: Thyroid Stimulating Hormone 0.568 uIU/ml (0.358-3.74)
[2022-08-24 13:06] LABS: Calcium 8.6 MG/DL (8.5-10.1); Osmolality,Calculated 310.3 MOS/KG (273-304)
[2022-08-24 13:08] LABS: Potassium 6.2 MMOL/L (3.5-5.1)
[2022-08-24] MEDS: SODIUM BICARB INJ 50 MEQ in SODIUM CHLORIDE 0.45% 1,000 ML IV SCH (13:50)
[2022-08-24] MEDS: SODIUM ZIRCONIUM CYCLOSILICATE 10 GM PACK PO SCH ×2 (15:09→21:28)
[2022-08-24] MEDS: GABAPENTIN 600 MG TABLET PO SCH ×2 (16:05→21:28)
[2022-08-24] MEDS: DOCUSATE SODIUM 100 MG CAPSULE PO SCH (21:28)
[2022-08-24] MEDS: cloNIDine 0.1 MG TABLET PO SCH (21:28)
[2022-08-24] MEDS: carvediloL 25 MG TABLET PO SCH (21:28)
[2022-08-24] MEDS: HEPARIN 5,000 UNIT/1 ML VIAL SUBCUT SCH (21:29)
[2022-08-25 06:53] LABS: Albumin 2.7 G/DL (3.4-5.0); Bilirubin,Total 0.4 MG/DL (0.20-1.00); Osmolality,Calculated 309.1 MOS/KG (273-304); Potassium 5.7 MMOL/L (3.5-5.1); Total Protein 6.5 G/DL (6.4-8.2)
[2022-08-25] MEDS: SODIUM BICARB INJ 50 MEQ in SODIUM CHLORIDE 0.45% 1,000 ML IV SCH ×2 (07:53→07:54)
[2022-08-25] MEDS: INSULIN LISPRO 100 UNIT/ML SUBCUT SCH ×2 (07:54→14:36)
[2022-08-25 08:27] LABS: Basophils % 0.2 % (0.0-0.8); Eosinophils # 0.3 10*3/uL (0.0-0.87); Eosinophils % 2.4 % (0.00-10.9); Immature Granulocytes % 0.6 %; Immature Granulocytes Absolute 0.06 #; Lymphocytes # 1.2 10*3/uL (1.4-4.0); Lymphocytes % 11.8 % (21.2-54.2); Mean Corpuscular Volume 96.6 FL (87-102); Mean Platelet Volume 10.2 FL (9.6-12.0); Monocytes # 1.3 10*3/uL (0.11-0.8); Monocytes % 12.3 % (1.7-12.7); Neutrophils % 72.7 % (38.7-73.9); Platelet Count 235 T/CUMM (130-400); Red Blood Count 2.07 MC/CUMM (3.8-5.5); Red Cell Distribution Width 13.6 % (9.3-17.3); White Blood Count 10.35 T/CUMM (4-12)
[2022-08-25 08:30] LABS: Hemoglobin 6.4 GM/DL (14.0-18.0)
[2022-08-25] MEDS ORDERED: PANTOPRAZOLE 40 MG TABLET PO SCH (09:00)
[2022-08-25] MEDS ORDERED: ISOSORBIDE MONONITRATE 60 MG TABLET PO SCH (09:00)
[2022-08-25] MEDS ORDERED: ASPIRIN EC 81 MG TABLET PO SCH (09:00)
[2022-08-25] MEDS ORDERED: FERROUS SULFATE 325 MG TABLET PO SCH (09:00)
[2022-08-25] MEDS ORDERED: SIMVASTATIN 20 MG TABLET PO SCH (09:00)
[2022-08-25 09:23] LABS: Hemoglobin 6.9 GM/DL (14.0-18.0)
[2022-08-25] MEDS ORDERED: SODIUM CHLORIDE 0.9% 1,000 ML IV PRN (10:01)
[2022-08-25] MEDS: GABAPENTIN 600 MG TABLET PO SCH (10:11)
[2022-08-25] MEDS: SODIUM ZIRCONIUM CYCLOSILICATE 10 GM PACK PO SCH (10:13)
[2022-08-25] MEDS: cloNIDine 0.1 MG TABLET PO SCH (10:13)
[2022-08-25] MEDS: HEPARIN 5,000 UNIT/1 ML VIAL SUBCUT SCH (10:14)
[2022-08-25] MEDS: carvediloL 25 MG TABLET PO SCH (10:14)
[2022-08-25] MEDS: DOCUSATE SODIUM 100 MG CAPSULE PO SCH (11:15)
[2022-08-25 11:33] VITALS: BP 135/67
== END 2022-08-25 12:39 | disposition left against medical advice (07) | DRG 469 ==
LOC: EDUNIT# → EDBD → N.ED 08:15 → SUATTDRO 10:19 → N.EDINP 10:19 → N.2E 11:42
PROVIDERS: ADMIT Internal Medicine; ATTEND Internal Medicine